=== PATIENT | male | born 1955 | race Caucasian/White ===

== ENCOUNTER 2016-04-25 14:05 | Outpatient (CLI) | payer OTHER ==
--- NOTE | 2016-04-25 16:31 | RAD ---
LUMBAR SPINE THREE VIEWS: History: Low back pain. FINDINGS: Moderate to severe degenerative changes are noted with prominent anterior osteophytes. Large anteri or bridging osteophytes are seen at L1-2, L2-3, and L3-4 levels. Pedical screws transfix L3-4 with an interbody disc implant at L3-4. There is loss of disc height at all levels of the lumbar spine w ith vacuum disc phenomenon seen. Very prominent facet hypertrophy seen at all levels. No evidence of spondylolisthesis. Prominent endplate sclerosis seen at all levels of the lumbar spine. Prior l aminectomy changes are noted. Slight scoliotic curvature with convexity to the left. In the AP projection the interbody disc implant at L3-4 appears to exhibit displacement to the left of midline. IMPRESSION: 1. Severe degenerative changes of the lumbar spine. 2. Post-operative changes of the lumbar spine with pedicle screws at L3-4. Interbody disc implant at this level appears displaced to the left on the AP projection. POS: [facility]
--- NOTE | 2016-04-25 16:32 | RAD ---
TWO VIEW RIGHT KNEE: Indication: Pain. FINDINGS: There chondrocalcinosis as well as osteophytosis of the right knee. No fracture or dislocation or s ignificant joint capsular distention. There is vascular calcification. IMPRESSION: 1. Findings which indicate CPPD deposition disease. 2. No acute osseous abnormality. POS: [facility]
== END 2016-04-25 14:06 | disposition home or self-care (01) ==
LOC: NAV RAD 14:05
PROVIDERS: ATTEND Family Medicine
DX: Z02.71 Encounter for disability determination (principal)
CPT/HCPCS: 72100